=== PATIENT | female | born 1955 | race Caucasian/White ===

== ENCOUNTER 2020-09-13 15:28 | Emergency (ER) | payer OTHER, SELFPAY ==
[2020-09-13 15:39] VITALS: BP 149/78; PULSE 70; RESP 18; TEMP 36.9; O2SAT 100
--- NOTE | 2020-09-13 15:43 | ED.URI ---
HPI - URI/Sore Throat General Chief Complaint: Upper Respiratory Infection Stated Complaint: rsvp Source: patient and RN notes reviewed Limitations: no limitations History of Present Illness HPI Narrative: The vaccinated patient, non-smoker/nondrinker who is on multiple meds, presents with cough. 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 Patient now notes approximately half week, 3-day history of mostly nonproductive cough, definite nasal congestion and headache-which she did take 3 days of antibiotics. No fever measured, sore throat, CP, wheezing, vomiting/diarrhea, S OB, calf pain/edema, frequency/dysuria. Symptoms are mild, somewhat worse sleeping/supine; she reports 1-year-old family member was recently diagnosed with RSV last week. Clinic, [id number] test are noncontributory; she declines hospital PCR testing [in favor of OTC antigen test]. Related Data Home Medications Medication Instructions Recorded Confirmed amoxicillin-pot clavulanate 1 tablet PO Q12H PRN 12/04/18 09/13/20 clonidine HCl 0.1 mg PO BID 12/04/18 09/13/20 metformin [Glucophage] 1,000 mg PO BID 12/04/18 09/13/20 multivitamin with minerals 1 tablet PO BID 12/04/18 09/13/20 [Hair,Skin and Nails] potassium chloride 20 meq PO DAILY 12/04/18 09/13/20 rosuvastatin [Crestor] 40 mg PO DAILY 12/04/18 09/13/20 spironolactone 25 mg PO DAILY 12/04/18 09/13/20 valacyclovir [Valtrex] 500 mg PO DAILY 12/04/18 09/13/20 clopidogrel 75 mg PO DAILY 09/13/20 09/13/20 gabapentin 300 mg PO DAILY 09/13/20 09/13/20 Allergies Allergy/AdvReac Type Severity Reaction Status Date / Time isosorbide Allergy Severe HIVES, Verified 09/13/20 15:55 EDEMA Latex, Natural Rubber Allergy Severe HIVES AND Verified 09/13/20 15:55 SWELLING losartan [From Cozaar] Allergy Severe HIVES, Verified 09/13/20 15:55 EDEMA Xieavkx-Nis-Vlt Reductase Allergy Severe HIVES, Verified 09/13/20 15:55 Inhibitor EDEMA Review of Systems Review of Systems: General/Constitutional: No weight loss,fever Eyes: N0: Redness,discharge Ears/Nose/Throat: No: Epistaxis,ear discharge Respiratory: Denies: Hemoptysis Gastrointestinal: No Vomiting, Bleeding-rectal Skin: No Lumps, eruption Neurologic: No Focal Weakness,Sz Hematologic: Denies: Petechiae/Purpura Psychiatric: No: Suicida ideationl All Other Systems: Reviewed and Negative FOR[facility]LY [facility] Past Medical History Medical History (Updated 09/13/20 @ 16:17 by Leeroy Ruth MD) Diabetes Hernia Hypertension Mitral valve prolapse Pancreatic cancer Surgical History Surgical History (Updated 02/22/19 @ 15:39 by Clyde Carranza) H/O hernia repair History of pancreatic surgery Whipple procedure Social History Social History Smoking status: Former smoker Tobacco type: cigarettes Additional smoking assessment comments: QUIT 1983, SMOKED FOR 10 YEARS, 1PPD Alcohol intake: current Drinks per week: 1 Substance use: never Gender identity (if verbalized by the patient): Female Spiritual care concerns: No Comments At time of signature, agree with nursing past medical, surgical, social and family history. There is no relevant family history pertinent to the presenting complaint Exam Narrative: General Appearance: Well appearing, Well nourished EYE: PERRLA, Conjunctiva clear Ears: Auditory canal normal, TM normal Nose: Rhinorrhea, Mucousal erythema Mouth/Throat: MM moist, Uvula midline, Pharyngeal erythema Neck: Supple, No adenopathy Respiratory: No respiratory distress, Breath sounds equal, Clear to auscultation Cardiovascular: RRR, No JVD Musculoskeletal: Non tender, Normal strength Skin: Warm, Dry Neurological: A&O x3, CN II-XII intact Psychiatric: Normal mood, Normal affect Course Vital Signs Vital signs: Vital Signs Temperature 98.5 F 09/13/20
== END 2020-09-13 16:20 | disposition home or self-care (01) ==
PROVIDERS: Emergency Provider Emergency Medicine
DX: J11.1 Influenza due to unidentified influenza virus with other respiratory manifestations (principal); Z20.822 Contact with and (suspected) exposure to COVID-19; Z87.891 Personal history of nicotine dependence; E11.9 Type 2 diabetes mellitus without complications; I10 Essential (primary) hypertension; I34.1 Nonrheumatic mitral (valve) prolapse; Z85.07 Personal history of malignant neoplasm of pancreas
CPT/HCPCS: 87420; 87426; 87804; 99213; C9803; G0463